=== PATIENT | female | born 1960 | race Hispanic/Latino ===

== ENCOUNTER → 2023-08-15 | Outpatient (CLI) | payer OTHER | END | disposition home or self-care (01) | LOC: OIH 08-13 11:39 | PROVIDERS: ATTEND Internal Medicine | DX: M47.26 Other spondylosis with radiculopathy, lumbar region (principal); M48.07 Spinal stenosis, lumbosacral region; M75.41 Impingement syndrome of right shoulder; M47.22 Other spondylosis with radiculopathy, cervical region; M25.78 Osteophyte, vertebrae | CPT/HCPCS: 72040; 72100; 73030 ==